=== PATIENT | female | born 1945 | race Caucasian/White ===

== ENCOUNTER 2020-12-17 15:21 | Inpatient (IN) | payer OTHER ==
[~2020-12-17] VITALS: Ht 162.6 cm; Wt 83.5 kg
[~2020-12-17 15:21] MED LIST: AMITRIPTYLINE100 MG PO; CELEXA20 MG PO; DITROPAN 5 MG TA5 MG PO; DULCOLAX5 MG PO; ECOTRIN81 MG PO; IBUPROFEN400 MG PO; IBUPROFEN800 MG PO; K-DUR TAB 20 M20 MEQ PO; KLONOPIN1 MG PO; LASIX20 MG PO; LIPITOR TAB 2020 MG PO; MECLIZINE HCL25 M1 PO; MIRALAX17 GM PO; NAPROXEN 250 M250 MG PO; NEURONTIN 300300 MG PO; NORCO 7.5-3251 EACH PO; OMEPRAZOLE40 MG PO; ONCE DAILY1 EACH PO; POTASSIUM CHLO20 ME2 PO; PRINIVIL20 MG PO; TOPAMAX 25 MG T25 MG PO; TRAMADOL-ACETA1 EACH PO; ULTRAM50 MG PO; VITAMIN D31000 UNI1 PO
[2020-12-17 18:52] LABS: HEMOGLOBIN 14.5 gm/dl (12.3-15.3); RED BLOOD COUNT 4.7 M/UL (4.00-5.10); WHITE BLOOD COUNT 9.4 K/UL (4.5-11.0)
[2020-12-17 19:23] LABS: BUN/CREATININE RATIO 9 (0-10)
[2020-12-18] MEDS ORDERED: CLONAZEPAM1 MG PO (00:08)
[2020-12-18] MEDS ORDERED: GABAPENTIN100 MG PO (00:09)
[2020-12-18] MEDS ORDERED: ATORVASTATIN CA20 MG PO (00:10)
[2020-12-18] MEDS ORDERED: VITAMIN D21250 MCG PO (00:10)
[2020-12-18] MEDS ORDERED: CELEXA 20MG TAB20 MG PO (00:11)
[2020-12-18 05:57] LABS: HEMOGLOBIN 12.7 gm/dl (12.3-15.3); RED BLOOD COUNT 4.11 M/UL (4.00-5.10); WHITE BLOOD COUNT 7.4 K/UL (4.5-11.0)
[2020-12-18 06:21] LABS: BUN/CREATININE RATIO 9 (0-10)
[2020-12-19 07:12] LABS: BUN/CREATININE RATIO 8 (0-10)
[2020-12-19] MEDS ORDERED: BACTRIM 400-801 EACH PO (12:56)
[2020-12-19] MEDS ORDERED: BACTRIM DS TAB1 EACH PO (12:57)
== END 2020-12-19 13:48 | disposition home or self-care (01) | DRG 312 ==
LOC: ER1 15:21 → CDU 22:30 → M/S 22:30
PROVIDERS: Internal Medicine; Physician Assistant Medical; ADMIT Internal Medicine
DX: I95.1 Orthostatic hypotension (principal); N30.00 Acute cystitis without hematuria; B96.89 Other specified bacterial agents as the cause of diseases classified elsewhere; E78.5 Hyperlipidemia, unspecified; Z86.73 Personal history of transient ischemic attack (TIA), and cerebral infarction without residual deficits; I27.20 Pulmonary hypertension, unspecified; Z79.899 Other long term (current) drug therapy; Z79.82 Long term (current) use of aspirin; Z20.822 Contact with and (suspected) exposure to COVID-19; K52.9 Noninfective gastroenteritis and colitis, unspecified
CPT/HCPCS: ECHO; 36415; 70450; 71045; 73502; 73552; 80048; 80053; 81001; 82550; 82553; 83735; 83874; 84484; 85025; 87077; 87086; 87186; 93005; 93306; 96365; 96376; 99285; G0378; J0696; J7030; U0002

== ENCOUNTER → 2021-04-22 | Outpatient (CLI) | payer OTHER ==
[~2021-04-22] MED LIST changes: +ATORVASTATIN CA20 MG PO; +BACTRIM 400-801 EACH PO; +BACTRIM DS TAB1 EACH PO; +CELEXA 20MG TAB20 MG PO; +CLONAZEPAM1 MG PO; +GABAPENTIN100 MG PO; +VITAMIN D21250 MCG PO
== END ==
LOC: RAD 14:33
DX: M54.9 Dorsalgia, unspecified (principal); M47.814 Spondylosis without myelopathy or radiculopathy, thoracic region
CPT/HCPCS: 72072

== ENCOUNTER → 2021-05-04 | Outpatient (CLI) | payer OTHER | LOC: US 08:21 | DX: R10.9 Unspecified abdominal pain (principal); K83.9 Disease of biliary tract, unspecified | CPT/HCPCS: 76700 ==

== ENCOUNTER → 2021-08-26 | Outpatient (CLI) | payer OTHER | LOC: HEART 5 08:30 | DX: R55 Syncope and collapse (principal) ==